=== PATIENT | male | born 1965 | race Caucasian/White ===

== ENCOUNTER 2017-12-22 14:48 | Emergency (ER) | payer MEDICARE, MEDICAID ==
[~2017-12-22] VITALS: Ht 180.3 cm; Wt 99.6 kg
[2017-12-22 14:56] VITALS: Ht 180.3 cm; Wt 99.6 kg
[2017-12-22 16:15] VITALS: BP 126/78
== END 2017-12-22 16:15 | disposition home or self-care (01) ==
LOC: ED 14:48
DX: M54.16 Radiculopathy, lumbar region (principal); F11.20 Opioid dependence, uncomplicated; E11.9 Type 2 diabetes mellitus without complications; I10 Essential (primary) hypertension; J44.9 Chronic obstructive pulmonary disease, unspecified; E78.00 Pure hypercholesterolemia, unspecified; M10.9 Gout, unspecified; Z88.5 Allergy status to narcotic agent
CPT/HCPCS: J1100; J1885